=== PATIENT | female | born 2000 | race Two or more races ===

== ENCOUNTER 2019-02-19 16:00 | Emergency (ER) | payer OTHER ==
--- NOTE | 2019-02-19 16:55 | ED ---
Skin Complaint - HPI Summary HPI Summary: Pt. is a 18 y.o female who presents to the ER for evaluation of numerous insect bites to face, hands and feet. Pt. is a college student and lives in a dorm. Pt. states when she woke up this morning she had numerous insect bites. Pt. states she found what she believes is a mosquito. Pt. states she slept in a long shirt and pants and bites are only present on exposed skin. Pt. states bites are very itchy. Otherwise denies recent illness, new exposures, cp, sob, facial swelling. sxs are mild in severity. NO current modifying factors. - History of Current Complaint Chief Complaint: EDGeneral Time Seen by Provider: 02/19/19 16:53 Stated Complaint: RASH FROM INSECT BITES PER PT Hx Obtained From: Patient Pain Intensity: 0 PMH/Surg Hx/FS Hx/Imm Hx Previously Healthy: Yes Infectious Disease History: No Infectious Disease History: Denies: Traveled Outside the [place] in Last 30 Days - Family History Known Family History: Positive: Non-Contributory - Social History Occupation: Student Lives: Dormitory/Roommates Review of Systems Constitutional: Negative ENT: Negative Cardiovascular: Negative Respiratory: Negative Positive: Rash All Other Systems Reviewed And Are Negative: Yes Physical Exam Triage Information Reviewed: Yes Vital Signs On Initial Exam: Initial Vitals Temp Pulse Resp BP Pulse Ox 98.9 F 63 16 118/66 100 02/19/19 16:06 02/19/19 16:06 02/19/19 16:06 02/19/19 16:06 02/19/19 16:06 Vital Signs Reviewed: Yes Appearance: Positive: Well-Appearing - Pt. sitting on bed in NAD. Friends present. Skin: Positive: Warm, Dry, Other - Numerous insect bites with surrrounding erythema to bilateral cheeks, hands and feet. Head/Face: Positive: Normal Head/Face Inspection Eyes: Positive: Normal, EOMI Neck: Positive: Supple Neurological: Positive: Normal, CN Intact II-III Psychiatric: Positive: Affect/Mood Appropriate Procedures - Sedation Patient Received Moderate/Deep Sedation with Procedure: No Diagnostics - Vital Signs Vital Signs Temp Pulse Resp BP Pulse Ox 02/19/19 16:06 98.9 F 63 16 118/66 100 - Laboratory Lab Statement: Any lab studies that have been ordered have been reviewed, and results considered in the medical decision making process. Course/Dx - Course Course Of Treatment: Pt. with numerous insect bites with localized reaction. Will place on a few days of prednisone and zyrtec. Advised to avoid itching. Recommend washing all bedding and clothes. TO f.u with the [facility] and return to er if sxs change or worsen. - Differential Diagnoses - Skin Complaint Differential Diagnoses: Allergic Reaction, Contact Dermatitis, Eczema, Local Allergic Reaction, Scabies, Tinea - Diagnoses Provider Diagnoses: Insect bites Discharge ED - Sign-Out/Discharge Documenting (check all that apply): Patient Departure - Discharge Plan Condition: Good Disposition: HOME Prescriptions: Cetirizine* [ZyrTEC 10 MG TAB*] 10 mg PO DAILY #7 tab predniSONE TAB* [Deltasone 20 MG TAB*] 40 mg PO DAILY 4 Days #8 tab Patient Education Materials: Insect Bite or Sting (ED) Referrals: [facility] [Outside] Additional Instructions: Follow with [facility] if symptoms persist Medication as directed Cool compresses and showers Avoid scratching Return to ER if symptoms change or worsen - Billing Disposition and Condition Condition: GOOD Disposition: Home - Attestation Statements Provider Attestation: I was available for consult. This patient was seen by the [facility]. The patient was not presented to, seen by, or examined by me. Chris Ramso MD
[2019-02-19] MEDS ORDERED: predniSONE TAB* 20 MG PO ONE (17:08)
[2019-02-19] MEDS ORDERED: Cetirizine* 10 MG TAB PO ONE (17:09)
[2019-02-19 17:45] VITALS: BP 112/63
[2019-02-19] MEDS ORDERED: Cetirizine* 10 MG TAB PO SCH (18:00)
== END 2019-02-19 17:43 | disposition home or self-care (01) ==
LOC: ED 16:00
DX: S00.86XA Insect bite (nonvenomous) of other part of head, initial encounter (principal); S60.562A Insect bite (nonvenomous) of left hand, initial encounter; S60.561A Insect bite (nonvenomous) of right hand, initial encounter; S90.862A Insect bite (nonvenomous), left foot, initial encounter; S90.861A Insect bite (nonvenomous), right foot, initial encounter; W57.XXXA Bitten or stung by nonvenomous insect and other nonvenomous arthropods, initial encounter; Y92.9 Unspecified place or not applicable
CPT/HCPCS: 99282; A9270-GY; J7512